=== PATIENT | female | born 1995 | race Caucasian/White ===

== ENCOUNTER 2017-07-17 18:09 | Emergency (ER) | payer BC ==
[2017-07-17 18:15] VITALS: TEMP 98.6
--- NOTE | 2017-07-17 18:36 | EDPHY ---
H & P Stated Complaint: Right leg tingling since 07/16/17 and feels lightheaded. Time Seen by Provider: 07/17/17 18:35 HPI/ROS: HPI: This is a 22-year-old female presents with Chief Complaint: Right leg tingling since 07/16/17 and feels lightheaded. Location: Right leg Quality: Tingling Duration: 1 day Signs and Symptoms: No radiation, no weakness, no decreased range of motion, no injury, no calf swelling Timing: Sudden, intermittent Severity: [id number] Context: Patient is a local college student presents with complaints of right leg tingling that is prominently on the top of her foot bottom of her foot but also occurs throughout the entire leg. She is unable to specify a starting point. She denies lower back pain/urinary symptoms/fever. She is from [place] and flew home last week. Patient has a Mirena IUD. Denies shortness of breath/chest pain. She has been treated over the summer for patellofemoral syndrome and was in physical therapy. She is walking around campus a lot in converse shoes. Nothing makes the pain better or worse. Modifying Factors: Has not tried any [id number] medications Comment: ROS: see HPI Constitutional: No fever, no chills, no weight loss Eyes: No blurred vision Respiratory: No shortness of breath, no cough Cardiovascular: No chest pain Gastrointestinal: No nausea, no vomiting, no diarrhea Genitourinary: No dysuria Extremities: No myalgias Neurologic: No weakness, no numbness Skin: No rashes Hematologic: No bruising, no bleeding MEDICAL/SURGICAL/SOCIAL HISTORY: Medical history: Patellofemoral syndrome. Does not take any regular medications. Surgical history: Denies Social history: College student CONSTITUTIONAL: Extremely well-appearing young adult white female, awake and alert, no obvious distress HEENT: Atraumatic and normocephalic, PERRL, EOMI. Tympanic membranes clear. Oropharynx clear, no exudate and moist pink mucosa. Airway patent. No lymphadenopathy. No meningismus. Cardiovascular: Normal S1/S2, regular rate, regular rhythm, without murmur rub or gallop. PULMONARY/CHEST: Symmetrical and nontender. Clear to auscultation bilaterally. Good air movement. No accessory muscle usage. ABDOMEN: Soft, nondistended, nontender, no rebound, no guarding, no peritoneal signs, no masses or organomegaly. No CVAT. BACK: No midline tenderness, no paraspinous muscle tenderness, no paraspinous muscle spasm, deep tendon reflexes 2/2 EXTREMITIES: 2/2 pulses, right HIP: Flexion to 125, extension to 115, hyper extension to 15, abduction to 45. No Pain with internal rotation and external rotation. No tenderness over greater trochanter. right KNEE: no effusion, medial and lateral joint line tenderness, full extension to 180, flexion to 120, no pain with varus and valgus exam. right Ankle; Plantar flexion to 50, dorsiflexion to 20. Foot inversion to 35 degree. Achilles tendon intact. no deformities, no clubbing, no cyanosis or edema. No calf tenderness. No palpable cords. Negative Homans sign. NEUROLOGICAL: no focal neuro deficits. GCS 15. SKIN: Warm and dry, no erythema. no rash. Good capillary refill. Source: Patient Exam Limitations: No limitations - Personal History LMP (Females 10-55): IUD In Place Current Tetanus Diphtheria and Acellular Pertussis (TDAP): Yes - Medical/Surgical History Hx Asthma: No Hx Chronic Respiratory Disease: No Hx Diabetes: No Hx Cardiac Disease: No Hx Renal Disease: No Hx Cirrhosis: No Hx Alcoholism: No Hx HIV/AIDS: No Hx Splenectomy or Spleen Trauma: No Other PMH: Denies - Social History Smoking Status: Never smoked Constitutional: Initial Vital Signs Temperature (C) 37 C 07/17/17 18:12 Heart Rate 117 H 07/17/17 18:12 Respiratory Rate 16 07/17/17 18:12 Blood Pressure 130/85 H 07/17/17 18:12 O2 Sat (%) 98 07/17/17 18:12 O2 Delivery Mode Room Air Allergies/Adverse Reactions: ciprofloxacin [From Cipro] Allergy (Verified 07/17/17 18:15) Penicillins Allergy (Verified 07/17/17 18:15) Sulfa (Sulfonamide Antibiotics) Allergy (Verified 07/17/17 18:15) Home Medications: Medication Instructions Recorded NK [No Known Home Meds] 07/17/17 Medical Decision Making - Diagnostics Imaging Results: Imaging Impressions Extremity Venous Study 07/17/17 18:41 Impression: No evidence of deep vein thrombosis in the right leg. I telephoned results to [facility] at 1939 hours. ED Course/Re-evaluation: Lumbar spine x-ray, right lower extremity ultrasound, labs, urinalysis, IV fluids oral medications ordered Given 1 L normal saline and p.o. meclizine Suspect overuse injury from walking in converse shoes with anxiety component No signs of neurovascular compromise/tenting of skin/compartment syndrome/ extremities and joints examined above and below area of concern and are neurovascularly intact. 1950: Called by radiologist and right lower extremity ultrasound shows no DVT. Labs reviewed and grossly unremarkable. X-ray my read shows large amount of stool burden; vertebra normal spacing and no significant degenerative changes 2030: Reassessed patient and symptoms completely resolved Differential Diagnosis: Back pain including but not limited to muscular pain, herniated disc, spine fracture, intra-abdominal causes and urinary tract infection. - Data Points Laboratory Results: Laboratory Results 07/17/17 18:30 07/17/17 18:30 07/17/17 07/17/17 07/17/17 18:30 18:30 18:30 WBC 10.42 10^3/uL H 10^3/uL (3.80-9.50) RBC 5.05 10^6/uL 10^6/uL (4.18-5.33) Hgb 15.3 g/dL g/dL (12.6-16.3) Hct 44.5 % % (38.0-47.0) MCV 88.1 fL fL (81.5-99.8) MCH 30.3 pg pg (27.9-34.1) MCHC 34.4 g/dL g/dL (32.4-36.7) RDW 13.2 % % (11.5-15.2) Plt Count 344 10^3/uL 10^3/uL (150-400) MPV 9.1 fL fL (8.7-11.7) Neut % (Auto) 75.9 % H % (39.3-74.2) Lymph % (Auto) 16.0 % % (15.0-45.0) Orange % (Auto) 7.2 % % (4.5-13.0) Eos % (Auto) 0.4 % L % (0.6-7.6) Baso % (Auto) 0.2 % L % (0.3-1.7) Nucleat RBC Rel Count 0.0 % % (0.0-0.2) Absolute Neuts (auto) 7.91 10^3/uL H 10^3/uL (1.70-6.50) Absolute Lymphs (auto) 1.67 10^3/uL 10^3/uL (1.00-3.00) Absolute Monos (auto) 0.75 10^3/uL 10^3/uL (0.30-0.80) Absolute Eos (auto) 0.04 10^3/uL 10^3/uL (0.03-0.40) Absolute Basos (auto) 0.02 10^3/uL 10^3/uL (0.02-0.10) Absolute Nucleated RBC 0.00 10^3/uL 10^3/uL (0-0.01) Immature Gran % 0.3 % % (0.0-1.1) Immature Gran # 0.03 10^3/uL 10^3/uL (0.00-0.10) Sodium 138 mEq/L mEq/L (134-144) Potassium 3.5 mEq/L mEq/L (3.5-5.2) Chloride 99 mEq/L mEq/L (97-110) Carbon Dioxide 22 mEq/l mEq/l (22-31) Anion Gap 17 mEq/L H mEq/L (8-16) BUN 13 mg/dL mg/dL (7-23) Creatinine 0.8 mg/dL mg/dL (0.6-1.0) Estimated GFR > 60 Glucose 96 mg/dL mg/dL (70-100) Calcium 9.7 mg/dL mg/dL (8.5-10.4) Beta HCG, Qual NEGATIVE Medications Given: Discontinued Medications Sodium Chloride (Ns) 1,000 mls @ 0 mls/hr IV EDNOW ONE; Wide Open PRN Reason: Protocol Stop: 07/17/17 18:49 Last Admin: 07/17/17 18:57 Dose: 1,000 mls Meclizine HCl (Meclizine Hcl) 12.5 mg PO EDNOW ONE Stop: 07/17/17 18:49 Last Admin: 07/17/17 18:57 Dose: 12.5 mg Departure - Departure Disposition: Home, Routine, Self-Care Clinical Impression: Right leg pain Condition: Good Instructions: Leg Sprain (ED), Patellofemoral Pain Syndrome (ED) Additional Instructions: Ultrasound was negative for blood clot in the right lower leg. Your labs were normal. Take ibuprofen 600 mg every 6-8 hours with food as needed for pain and inflammation. Drink plenty of fluids and rest. Wear proper fitting athletic shoes when walking long distances. Follow up with Orthopedics in 7-10 days if symptoms persist or worsen at which time they will evaluate and recommend with you if conservative management versus further imaging is indicated. The x-rays obtained in the emergency department today demonstrate no evidence of an obvious fracture. Sometimes fractures are not obvious on the initial set of x-rays performed in the ED. For this reason, you should have repeat x-rays performed in 7-10 days if you are having any pain exclude the possibility of an occult fracture. Referrals: Anna Triana MD [Medical Doctor] - As per Instructions
[2017-07-17] MEDS ORDERED: MECLIZINE HCL 25 MG TAB PO ONE (18:48)
[2017-07-17] MEDS ORDERED: NS 1,000 ML IV ONE (18:48)
[2017-07-17 19:03] LABS: ANION GAP 17 mEq/L (8-16); CALCIUM 9.7 mg/dL (8.5-10.4); CARBON DIOXIDE 22 mEq/l (22-31); CHLORIDE 99 mEq/L (97-110); CREATININE 0.8 mg/dL (0.6-1.0); GLOMERULAR FILTRATION RATE > 60; GLUCOSE 96 mg/dL (70-100); POTASSIUM 3.5 mEq/L (3.5-5.2); SODIUM 138 mEq/L (134-144)
[2017-07-17 19:09] LABS: % IMMATURE GRANULYOCYTES 0.3 % (0.0-1.1); ABSOLUTE IMMATURE GRANULOCYTES 0.03 10^3/uL (0.00-0.10); ADD DIFF? NO; ADD MORPH? NO; ADD SCAN? NO; ATYPICAL LYMPHOCYTE FLAG 20 (0-99); FRAGMENT RBC FLAG 0 (0-99); HEMATOCRIT 44.5 % (38.0-47.0); HEMOGLOBIN 15.3 g/dL (12.6-16.3); LEFT SHIFT FLG 0 (0-99); LIPEMIA HEMOLYSIS FLAG 90 (0-99); MEAN CELL HEMOGLOBIN 30.3 pg (27.9-34.1); MEAN CELL HEMOGLOBIN CONCENTR. 34.4 g/dL (32.4-36.7); MEAN CELL VOLUME 88.1 fL (81.5-99.8); MEAN PLATELET VOLUME 9.1 fL (8.7-11.7); PLATELET CLUMPS FLAG 0 (0-99); PLATELET COUNT 344 10^3/uL (150-400); RED BLOOD CELL COUNT 5.05 10^6/uL (4.18-5.33); RED CELL DISTRIBUTION WIDTH 13.2 % (11.5-15.2)
[2017-07-17 20:51] VITALS: BP 110/76; PULSE 90; RESP 15; O2SAT 99
== END 2017-07-17 20:49 | disposition home or self-care (01) ==
PROC: 3E0337Z Introduction of Electrolytic and Water Balance Substance into Peripheral Vein, Percutaneous Approach (ICD-10-PCS; principal; 2017-07-17)
DX: M79.604 Pain in right leg (principal); E86.9 Volume depletion, unspecified

== ENCOUNTER 2018-06-04 06:41 | Emergency (ER) | payer BC ==
--- NOTE | 2018-06-04 06:56 | EDPHY ---
H & P Time Seen by Provider: 06/04/18 06:55 HPI/ROS: CHIEF COMPLAINT: Chest pain HISTORY OF PRESENT ILLNESS: Patient said she was feeling well until she woke up this morning at 2:00 a.m.. She has had some central chest discomfort associated with the feeling of difficulty breathing. Symptoms mild to moderate , not pleuritic, not associated with coughing or hemoptysis or leg swelling. Not positional or exertional. No recent injury or trauma and no fever or chills. Symptoms come and go and associated with also not being able to get back to sleep easily. REVIEW OF SYSTEMS: Eye: no change in vision ENT: no sore throat Cardiac: HPI no palpitations Pulmonary: HPI Abdomen: Associated with some mild diffuse abdominal discomfort this morning since 2:00 a.m. but no vomiting or diarrhea. No belching or burping. Musculoskeletal: No leg swelling Skin: no rash Neuro: Mild diffuse headache also, not thunderclap in onset or worst of life. Constitutional: no fever : no urinary symptoms, no vaginal bleeding or discharge A comprehensive 10 point review of systems is otherwise negative aside from elements mentioned in the history of present illness. PAST MEDICAL HISTORY: IUD, asthma. Denies Family history: Migraines in sister and mother, negative for cardiovascular or venous thromboembolic Social history: No recent travel or immobilization, occasional alcohol, no drugs or tobacco. General Appearance: Alert and conversant, cooperative. Eyes: No scleral icterus. Pupils equal and reactive extraocular motion intact. No proptosis. ENT, Mouth: Normal mucous membranes. Normal tympanic membranes bilaterally. Normal pharynx. No facial swelling. Respiratory: Normal respiratory effort, breath sounds equal, lungs are clear to auscultation. Cardiovascular: Regular rate and rhythm. No murmurs. Gastrointestinal: Abdomen is soft and non tender. No tenderness over McBurney' s point and no lower abdominal rebound or guarding. Neurological: Alert, face symmetric, normal motor and sensory in extremities. Ambulatory, not ataxic. Skin: Warm and dry, no rashes. Musculoskeletal: No peripheral edema. No calf tenderness. Psychiatric: Not agitated. Emergency Department course/MDM: Patient is PERC negative, normal EKG, does not have red flags to suggest dangerous cause for chest pain is likely. Has IUD, normal vital signs, no abdominal tenderness. I think ectopic , appendicitis, UTI, PID would be unlikely. Mild headache but HORSE WRANGLER infection or intracranial mass or other acute emergent medical or surgical condition appears unlikely. Symptomatic treatment, precautions given, patient states understanding and is in agreement with the plan. She will return immediately if she has worsening pain in her chest or abdomen. Smoking Status: Never smoked Constitutional: Initial Vital Signs Temperature (C) 36.9 C 06/04/18 06:45 Heart Rate 76 06/04/18 06:45 Respiratory Rate 20 06/04/18 06:45 Blood Pressure 132/66 H 06/04/18 06:45 O2 Sat (%) 98 06/04/18 06:45 O2 Delivery Mode Room Air Allergies/Adverse Reactions: ciprofloxacin [From Cipro] Allergy (Verified 06/04/18 06:44) Penicillins Allergy (Verified 06/04/18 06:44) Sulfa (Sulfonamide Antibiotics) Allergy (Verified 06/04/18 06:44) Home Medications: Medication Instructions Recorded NK [No Known Home Meds] 07/17/17 Medical Decision Making - Diagnostics EKG Interpretation: 12-lead EKG interpreted by me; official reading is in computer system. My interpretation is sinus rhythm rate 67, normal intervals, no ischemic changes. Differential Diagnosis: Differential diagnosis considered for chest pain including but not limited to myocardial ischemia, aortic dissection, pericarditis, pulmonary embolus, chest wall pain, pleural inflammation and pulmonary infectious causes. - Data Points Medications Given: Discontinued Medications Ibuprofen (Motrin) 600 mg PO EDNOW ONE Stop: 06/04/18 07:14 Last Admin: 06/04/18 07:16 Dose: 600 mg Departure - Departure Disposition: Home, Routine, Self-Care Clinical Impression: Chest pain Qualifiers: Chest pain type: unspecified Qualified Code(s): R07.9 - Chest pain, unspecified Condition: Good Instructions: Chest Pain (ED) Additional Instructions: Primary care referrals. Oral ibuprofen 600 mg or Tylenol 650 mg every 8 hr over the next 48 hr as needed. Please return if you are feeling worse or develop new symptoms. Referrals: Sebastian Duke MD [Medical Doctor] - As per Instructions Belgica Richards MD [[facility] Primary Care Provider] - As per Instructions Stand Alone Forms: School Excuse
--- NOTE | 2018-06-04 06:58 | CPEKG ---
Test Reason : OPEN Blood Pressure : / mmHG Vent. Rate : 067 BPM Atrial Rate : 067 BPM P-R Int : 182 ms QRS Dur : 092 ms QT Int : 410 ms P-R-T Axes : 071 079 049 degrees QTc Int : 433 ms Sinus rhythm Confirmed by Isaak Tang ([id number]) on 06/04/2018 6:57:22 AM Referred By: Confirmed By:Isaak Tang
[2018-06-04] MEDS ORDERED: IBUPROFEN 600 MG TAB PO ONE (07:13)
[2018-06-04 07:18] VITALS: BP 121/78
== END 2018-06-04 07:25 | disposition home or self-care (01) ==
DX: R07.9 Chest pain, unspecified (principal)

== ENCOUNTER 2018-07-02 03:55 | Emergency (ER) | payer BC ==
[2018-07-02] MEDS ORDERED: FAMOTIDINE 20 MG TAB PO ONE (04:42)
[2018-07-02] MEDS ORDERED: LIDOCAINE 2% VISCOUS 15 ML UDCUP PO ONE (04:42)
[2018-07-02] MEDS ORDERED: MAG HYDROX/AL HYDROX/SIMETH 30 ML UDCUP PO ONE (04:42)
[2018-07-02] MEDS ORDERED: HYOSCYAMINE SULFATE 0.125 MG TAB PO ONE (04:42)
--- NOTE | 2018-07-02 04:54 | EDPHY ---
H & P Stated Complaint: BILAT MID BACK PAIN WITH VOMITING Time Seen by Provider: 07/02/18 04:04 HPI/ROS: HPI The patient presents with epigastric abdominal pain which began about 2 hr ago when she was trying to fall asleep. She went to bed with some mild stomach ache which she did not make much of. About 2 hr ago she awoke with diffuse abdominal pain which is achy though most prominent in her epigastrium. It radiates to both of her sides. She took a dose of ibuprofen, however then vomited. She has a history of 1 similar episode about 1 month ago which she thinks is related to dehydration. REVIEW OF SYSTEMS 10 systems were reviewed and negative with the exception of the elements mentioned in the history of present illness. PMHx: History of similar episode about 1 month ago which also occurred at night Soc Hx: College student PHYSICAL General Appearance: Alert, no distress Eyes: Pupils equal and round no pallor or injection ENT, Mouth: Mucous membranes moist Respiratory: There are no retractions, lungs are clear to auscultation Cardiovascular: Regular rate and rhythm Gastrointestinal: Abdomen is soft and non-tender, no masses, bowel sounds normal Neurological: A&O, moves all extremities Skin: Warm and dry, no rashes Musculoskeletal: Neck is supple non tender Extremities: symmetrical, full range of motion Psychiatric: Patient is oriented X 3, there is no agitation Source: Patient Exam Limitations: No limitations - Personal History LMP (Females 10-55): IUD In Place Current Tetanus/Diphtheria Vaccine: Yes Current Tetanus Diphtheria and Acellular Pertussis (TDAP): Yes - Medical/Surgical History Hx Asthma: Yes Hx Chronic Respiratory Disease: No Hx Diabetes: No Hx Cardiac Disease: No Hx Renal Disease: No Hx Cirrhosis: No Hx Alcoholism: No Hx HIV/AIDS: No Hx Splenectomy or Spleen Trauma: No Other PMH: Denies - Social History Smoking Status: Never smoked Constitutional: Initial Vital Signs Temperature (C) 36.9 C 07/02/18 04:01 Heart Rate 87 07/02/18 04:01 Respiratory Rate 18 07/02/18 04:01 Blood Pressure 122/90 H 07/02/18 04:01 O2 Sat (%) 98 07/02/18 04:01 O2 Delivery Mode Room Air Allergies/Adverse Reactions: chloral hydrate Allergy (Verified 07/02/18 04:03) ciprofloxacin [From Cipro] Allergy (Verified 07/02/18 04:03) Penicillins Allergy (Verified 07/02/18 04:03) Sulfa (Sulfonamide Antibiotics) Allergy (Verified 07/02/18 04:03) Home Medications: Medication Instructions Recorded NK [No Known Home Meds] 07/17/17 Medical Decision Making Differential Diagnosis: 23-year-old healthy female presents with 2 hr of diffuse abdominal pain most prominent in the epigastrium which radiates toward her back which is 1 episode of vomiting after taking a dose of ibuprofen. Differential diagnosis includes gastritis, gastroenteritis, biliary colic. In the emergency department, patient received GI cocktail. This improved her symptoms. Repeat abdominal exam was benign. I plan to discharge her with instructions for antacids and follow up at [facility] as needed. She is happy with this plan. - Data Points Medications Given: Discontinued Medications Al Hydroxide/Mg Hydroxide (Maalox Susp) 30 ml PO ONCE ONE Stop: 07/02/18 04:43 Last Admin: 07/02/18 04:49 Dose: 30 ml Famotidine (Pepcid) 20 mg PO EDNOW ONE Stop: 07/02/18 04:43 Last Admin: 07/02/18 04:48 Dose: 20 mg Hyoscyamine Sulfate (Levsin, Hyomax-Sl) 0.25 mg PO ONCE ONE Stop: 07/02/18 04:43 Last Admin: 07/02/18 04:48 Dose: 0.25 mg Lidocaine (Lidocaine 2% Viscous) 15 ml PO ONCE ONE Stop: 07/02/18 04:43 Last Admin: 07/02/18 04:49 Dose: 15 ml Departure - Departure Disposition: Home, Routine, Self-Care Clinical Impression: Abdominal pain Qualifiers: Abdominal location: epigastric Qualified Code(s): R10.13 - Epigastric pain Vomiting Qualifiers: Vomiting type: unspecified Vomiting Intractability: non-intractable Nausea presence: with nausea Qualified Code(s): R11.2 - Nausea with vomiting, unspecified Instructions: Gastritis (ED), Diet for Stomach Ulcers and Gastritis (ED) Additional Instructions: I recommend that you have a bland diet for the next few days to see if this helps her symptoms. You can take Maalox or Tums to treat the pain. Return to the emergency department for any fever, pain in the right lower side or if your pain is worse in any way. Referrals: [facility] [Clinic] - As per Instructions Stand Alone Forms: School Excuse
[2018-07-02 06:02] VITALS: BP 109/90
== END 2018-07-02 06:02 | disposition home or self-care (01) ==
DX: R10.13 Epigastric pain (principal); R11.2 Nausea with vomiting, unspecified; Z97.5 Presence of (intrauterine) contraceptive device

== ENCOUNTER 2018-11-19 19:13 | Emergency (ER) | payer BC ==
[2018-11-19 19:35] VITALS: BP 140/99
--- NOTE | 2018-11-19 19:48 | EDPHY ---
H & P Stated Complaint: continued uti sx for round 2 abx since fri Time Seen by Provider: 11/19/18 19:47 - Personal History LMP (Females 10-55): Unknown Current Tetanus/Diphtheria Vaccine: Yes Current Tetanus Diphtheria and Acellular Pertussis (TDAP): Yes - Medical/Surgical History Hx Asthma: Yes Hx Chronic Respiratory Disease: No Hx Diabetes: No Hx Cardiac Disease: No Hx Renal Disease: No Hx Cirrhosis: No Hx Alcoholism: No Hx HIV/AIDS: No Hx Splenectomy or Spleen Trauma: No Other PMH: Denies - Social History Smoking Status: Never smoked Constitutional: Initial Vital Signs Temperature (C) 37.2 C 11/19/18 19:29 Heart Rate 116 H 11/19/18 19:29 Respiratory Rate 18 11/19/18 19:29 Blood Pressure 140/99 H 11/19/18 19:29 O2 Sat (%) 98 11/19/18 19:29 O2 Delivery Mode Room Air Allergies/Adverse Reactions: chloral hydrate Allergy (Verified 07/02/18 04:03) ciprofloxacin [From Cipro] Allergy (Verified 07/02/18 04:03) Penicillins Allergy (Verified 07/02/18 04:03) Sulfa (Sulfonamide Antibiotics) Allergy (Verified 07/02/18 04:03) Home Medications: Medication Instructions Recorded Ashlyna 0.15-0.03-0.01 mg Tab 11/19/18 Macrobid 11/19/18 Medical Decision Making ED Course/Re-evaluation: CHIEF COMPLAINT: UTI symptoms HISTORY OF PRESENT ILLNESS: The patient is a 23 y/o female complaining of recurrent UTI symptoms even after taking two courses of Macrobid. Over the last several months the patient has been on antibiotics including Keflex twice for a cholecystectomy, strep throat, and a UTI. Starting 1 month ago she developed blood in her urine and painful urination. She started Macrobid which mildly alleviated her symptoms. However, the symptoms never completely improved and she was placed on Macrobid again. Her symptoms have not improved with the second course of antibiotics and she was advised by an urgent care to present to the emergency department after her UA revealed another infection. She also has bilateral back pain at the location of her kidneys. No fever, headache, body aches, lightheadedness, chest pain, heart palpitations, shortness of breath, cough, abdominal pain, bowel complaints , numbness, paresthesias. REVIEW OF SYSTEMS: A comprehensive 10 system review of systems is otherwise negative aside from elements mentioned in the history of present illness and medical decision making. PHYSICAL EXAM: HR, BP, O2 Sat, RR. Temp noted General Appearance: Alert, well hydrated, appropriate, and non-toxic appearing. Head: Atraumatic without scalp tenderness or obvious injury Eyes: Pupils equal, round, reactive to light and accommodation, EOMI, no trauma , no injection. Ears: Clear bilaterally, no perforation, normal landmarks Nose: Atraumatic, no rhinorrhea, clear. Throat: There is no erythema or exudates, no lesions, normal tonsils, mucus membranes moist. Neck: Supple, 2+ carotid upstroke, nontender, no lymphadenopathy. Respiratory: No retractions, no distress, no wheezes, and no accessory muscle use. Lungs are clear to auscultation bilaterally. Cardiovascular: Regular rate and rhythm, no murmurs, rubs, or gallops. Bilateral carotid, radial, dorsalis pedis, and posterior tibial pulses intact. Good capillary refill all extremities. Gastrointestinal: Abdomen is soft, nontender, non-distended, no masses, no rebound, no guarding, no peritoneal signs. Back: Bilateral CVA tenderness. Musculoskeletal: Normal active ROM of all extremities, atraumatic. Neurological: Alert, appropriate, and interactive. The patient has normal DTRs and non-focal cranial nerves, motor, sensory, and cerebellar exam. Skin: No rashes, good turgor, no nodules on palpation. Past medical history: Denies Past surgical history: Cholecystectomy Family history: Denies Social history: Student at , single, lives in [place] DIAGNOSTICS/PROCEDURES/CRITICAL CARE TIME: Not indicated. DIFFERENTIAL DIAGNOSIS: The differential diagnosis for the patient's urinary symptoms included but was not limited to musculoskeletal causes, kidney stone, pyelonephritis, shingles, diverticulitis, appendicitis, and aortic aneurysm. MEDICAL DECISION MAKING: he patient is a 23 y/o female presenting with recurrent UTI symptoms even after taking two courses of Macrobid. On exam the patient has bilateral CVA tenderness. Patient's UA at urgent care revealed a UTI. I believe she has acute pyelonephritis as she has the CVA tenderness. I have prescribed her Keflex, as she has been on this in the past several months, as well as Zofran for her symptoms. Return precautions provided; patient is comfortable with this plan. Departure - Departure Disposition: Home, Routine, Self-Care Clinical Impression: Acute pyelonephritis Condition: Good Instructions: Urinary Tract Infection in Women (ED) Additional Instructions: 1. Take Keflex as prescribed. 2. Take Zofran as prescribed. 3. Follow-up with your primary doctor within 72 hours. 4. Return to the Emergency Department for fever, worsening pain, flank pain or failure to improve within 72 hours. Referrals: COLETTE OJEDA MD [Other] - As per Instructions Report Scribed for: Erick Cavazos Report Scribed by: Romana Alfaro Date of Report: 11/19/18 Time of Report: 19:49
[2018-11-19] MEDS ORDERED: CEPHALEXIN 500 MG CAP PO ONE (19:54)
[2018-11-19] MEDS ORDERED: ONDANSETRON DISINTEGRATING 4 MG TAB PO ONE (19:54)
[2018-11-19] MEDS ORDERED: ONDANSETRON 4MG PREPACK#2 BTL TAKEHOME ONE (19:54)
== END 2018-11-19 20:10 | disposition home or self-care (01) ==
DX: N39.0 Urinary tract infection, site not specified (principal); Z79.2 Long term (current) use of antibiotics

== ENCOUNTER → 2019-01-15 | Outpatient (CLI) | payer BC | LOC: BMCIMAGING 16:53 | PROVIDERS: ATTEND Family Medicine | DX: Z03.89 Encounter for observation for other suspected diseases and conditions ruled out (principal) ==